=== PATIENT | female | born 1965 | race Caucasian/White ===

== ENCOUNTER 2016-12-28 01:17 | Emergency (ER) | payer OTHER ==
[~2016-12-28] VITALS: Ht 165.1 cm; Wt 90.9 kg
[~2016-12-28 01:17] MED LIST: NORCO 5/3251 TABLET PO
[2016-12-28 04:43] LABS: CHLORIDE 111 mEq/L (99-109); MCHC 34.2 G/DL (30.0-36.0); MCV 96.5 FL (83-99); NRBC (%) 1.1 /100 WBC (0-0); POTASSIUM 3.3 mEq/L (3.7-5.4); RBC DIS.WIDTH-CV 17.6 % (11.8-14.6); RBC DIS.WIDTH-SD 62.5 % (39-53); RED BLOOD COUNT 3.73 M/uL (3.80-5.20); SODIUM 141 mEq/L (136-147); WHITE BLOOD COUNT 2.7 K/uL (4.1-10.2)
[2016-12-28 04:45] LABS: GLUCOSE 94 mg/dL (70-99)
[2016-12-28 04:46] LABS: ANION GAP 7 MEQ/L (2-14)
[2016-12-28 04:47] LABS: TOTAL BILIRUBIN 4.4 mg/dL (0.0-1.0)
[2016-12-28 04:48] LABS: ALKALINE PHOSPHATASE 102 IU/L (3-129)
[2016-12-28 04:49] LABS: GFR ESTIMATE (CALCULATED) > 59 mL/min/
[2016-12-28 04:50] LABS: UREA NITROGEN (BUN) 4 mg/dL (9-23)
[2016-12-28 05:35] LABS: HEMATOLOGY COMMENT 1 SMEAR COMPATIBLE; MEAN PLAT.VOLUME 11.5 uM^3 (9.5-12.4); PLAT.SUFFICIENCY DECREASED; PLATELET COUNT 40 K/uL (156-360)
[2016-12-28] MEDS ORDERED: KEFLEX500 MG PO (06:11)
[2016-12-28] MEDS ORDERED: PERCOCET 5/31 TABLET PO (06:11)
[2016-12-28 06:30] VITALS: BP 117/62
[2016-12-28 07:02] LABS: C-REACTIVE PROTEIN 7.2 MG/L (0-10); SAMPLE HEMOLYSIS CHECK 1; SAMPLE ICTERIC CHECK 1; SAMPLE LIPEMIA CHECK 0
== END 2016-12-28 06:32 | disposition home or self-care (01) ==
LOC: EME 01:17
PROVIDERS: Physician Assistant
PROC: [UNRECOGNIZED PROCEDURE] (principal; 2016-12-28)
DX: M79.89 Other specified soft tissue disorders (principal); B19.20 Unspecified viral hepatitis C without hepatic coma; Z88.2 Allergy status to sulfonamides; F17.200 Nicotine dependence, unspecified, uncomplicated
CPT/HCPCS: 73590; 80053; 85027; 86140; 93970; 99281; 99285; J2270; J2405; J7030

== ENCOUNTER 2017-01-20 17:10 | Inpatient (IN) | payer OTHER ==
[~2017-01-20] VITALS: Ht 165.1 cm; Wt 94.0 kg
[~2017-01-20 17:10] MED LIST changes: +KEFLEX500 MG PO; +PERCOCET 5/31 TABLET PO
[2017-01-20] MEDS ORDERED: DAILY VITE WIT1 EACH PO (18:27)
[2017-01-20 18:30] LABS: MCH 33.2 PG (29.0-34.0); MCHC 33.8 G/DL (30.0-36.0); MCV 98.1 FL (83-99); NRBC (%) 0.6 /100 WBC (0-0); RBC DIS.WIDTH-CV 21.7 % (11.8-14.6); RBC DIS.WIDTH-SD 77.3 % (39-53); RED BLOOD COUNT 3.77 M/uL (3.80-5.20); WHITE BLOOD COUNT 3.1 K/uL (4.1-10.2)
[2017-01-20 18:34] LABS: EOSINOPHIL (%) 1.9 % (0-5); EOSINOPHIL COUNT 0.1 K/uL (0-0.3); IMMATURE GRANULOCYTE (%) 0.6 % (0.0-0.7); INSTRUMENT ABS NEUTROPHIL CT 2.2 K/uL; LYMPHOCYTE COUNT 0.5 K/uL (1.0-2.8); MONOCYTE (%) 10.5 % (3-12); MONOCYTE COUNT 0.3 K/uL (0-0.8); NEUTROPHIL (%) 69.5 % (45-76); NEUTROPHIL COUNT 2.2 K/uL (1.8-6.4)
[2017-01-20 18:41] LABS: CHLORIDE 108 mEq/L (99-109); SODIUM 140 mEq/L (136-147)
[2017-01-20 18:43] LABS: GLUCOSE 124 mg/dL (70-99)
[2017-01-20 18:44] LABS: ANION GAP 8 MEQ/L (2-14); D-DIMER ELISA 2.74 mg/L FEU (< 0.57)
[2017-01-20 18:45] LABS: TOTAL BILIRUBIN 8.4 mg/dL (0.0-1.0)
[2017-01-20 18:46] LABS: ALKALINE PHOSPHATASE 104 IU/L (3-129); SERUM ETHYL ALCOHOL < 10 mg/dL
[2017-01-20 18:47] LABS: GFR ESTIMATE (CALCULATED) > 59 mL/min/
[2017-01-20 18:48] LABS: UREA NITROGEN (BUN) 3 mg/dL (9-23)
[2017-01-20 18:50] LABS: LIPASE 24 U/L (1.0-51.0)
[2017-01-20 19:14] LABS: ADD MIUA? YES; BILIRUBIN MODERATE; BLOOD NEGATIVE; COLOR AMBER ((YELLOW)); GLUCOSE (STRIP) NEGATIVE; KETONES NEGATIVE; LEUKOCYTES NEGATIVE; NITRITE NEGATIVE; PROTEIN (STRIP) NEGATIVE
[2017-01-20 19:20] LABS: HEMATOLOGY COMMENT 1 SN; IMM.PLATELET FRACTION 3.2 (1-7); MEAN PLAT.VOLUME 9.8 uM^3 (9.5-12.4); PLAT.SUFFICIENCY DECREASED; PLATELET COUNT 33 K/uL (156-360)
[2017-01-20 19:27] LABS: ICTOTEST POSITIVE
[2017-01-20 19:59] LABS: AMORPHOUS PHOSPHATE CRYSTALS RARE; BACTERIA 1+ /HPF; CASTS NONE SEEN /LPF; CRYSTALS PRESENT; EPITHELIAL CELLS RARE /HPF; MUCUS RARE /LPF; RED BLOOD CELLS 0-5 /HPF (0-5); WHITE BLOOD CELLS 0-5 /HPF (0-5)
[2017-01-20 20:09] LABS: TROP-I INTERPRETATION NEGATIVE; TROPONIN-I 0.03 ng/mL (0.0-0.30)
[2017-01-20] MEDS ORDERED: KLOR-CON M2020 MEQ PO (22:28)
[2017-01-20] MEDS ORDERED: LO-DOSE ASPIRIN81 M2 PO (22:28)
[2017-01-20] MEDS ORDERED: ADVIL200 MG PO (22:31)
[2017-01-21 03:55] VITALS: BP 144/71
[2017-01-21 06:51] LABS: TROP-I INTERPRETATION NEGATIVE; TROPONIN-I 0.01 ng/mL (0.0-0.30)
[2017-01-21 08:13] VITALS: BP 122/67
[2017-01-21 19:29] VITALS: BP 126/71
[2017-01-21 23:34] VITALS: BP 120/85
[2017-01-22 03:36] VITALS: BP 123/74
[2017-01-22 06:18] LABS: EOSINOPHIL (%) 3.5 % (0-5); EOSINOPHIL COUNT 0.1 K/uL (0-0.3); HEMATOCRIT 33.2 % (36.0-46.0); IMMATURE GRANULOCYTE (%) 0.3 % (0.0-0.7); INSTRUMENT ABS NEUTROPHIL CT 1.7 K/uL; LYMPHOCYTE COUNT 0.7 K/uL (1.0-2.8); MCH 33.4 PG (29.0-34.0); MCHC 32.8 G/DL (30.0-36.0); MCV 101.8 FL (83-99); MONOCYTE (%) 11.2 % (3-12); MONOCYTE COUNT 0.3 K/uL (0-0.8); NEUTROPHIL (%) 60.9 % (45-76); NEUTROPHIL COUNT 1.7 K/uL (1.8-6.4); RBC DIS.WIDTH-SD 81.9 % (39-53); RED BLOOD COUNT 3.26 M/uL (3.80-5.20); WHITE BLOOD COUNT 2.9 K/uL (4.1-10.2)
[2017-01-22 06:30] LABS: INTER. NORMALIZED RATIO 1.8; PROTHROMBIN TIME 18.8 (9.2-11.2); PTT 36.2 (25-32)
[2017-01-22 06:41] LABS: ALKALINE PHOSPHATASE 86 IU/L (3-129); ANION GAP 6 MEQ/L (2-14); CHLORIDE 109 MEQ/L (99-109); GFR ESTIMATE (CALCULATED) > 59 mL/min/; POTASSIUM 3.2 MEQ/L (3.7-5.4); SAMPLE HEMOLYSIS CHECK 0; SAMPLE ICTERIC CHECK 2; SAMPLE LIPEMIA CHECK 0; SODIUM 139 MEQ/L (136-147); TOTAL BILIRUBIN 7.1 MG/DL (0.0-1.0); UREA NITROGEN (BUN) 6 mg/dL (9-23)
[2017-01-22 06:42] LABS: GLUCOSE 88 mg/dL (70-99)
[2017-01-22 07:38] LABS: IMM.PLATELET FRACTION 2.7 (1-7); MEAN PLAT.VOLUME 10.2 uM^3 (9.5-12.4); PLAT.SUFFICIENCY DECREASED; PLATELET COUNT 40 K/uL (156-360)
[2017-01-22 08:13] VITALS: BP 116/67
[2017-01-22 08:48] LABS: MAGNESIUM 1.8 mg/dl (1.3-2.7)
[2017-01-22 15:10] VITALS: BP 120/67
[2017-01-22 19:58] VITALS: BP 111/70
[2017-01-22 23:48] VITALS: BP 107/74
[2017-01-23 03:43] VITALS: BP 107/61
[2017-01-23 06:41] LABS: EOSINOPHIL (%) 2.2 % (0-5); EOSINOPHIL COUNT 0.1 K/uL (0-0.3); HEMATOCRIT 30.2 % (36.0-46.0); IMMATURE GRANULOCYTE (%) 0.4 % (0.0-0.7); INSTRUMENT ABS NEUTROPHIL CT 1.3 K/uL; LYMPHOCYTE COUNT 0.6 K/uL (1.0-2.8); MCH 35.3 PG (29.0-34.0); MCHC 34.4 G/DL (30.0-36.0); MCV 102.4 FL (83-99); MONOCYTE (%) 11.2 % (3-12); MONOCYTE COUNT 0.3 K/uL (0-0.8); NEUTROPHIL (%) 60.2 % (45-76); NEUTROPHIL COUNT 1.3 K/uL (1.8-6.4); RBC DIS.WIDTH-CV 22.2 % (11.8-14.6); RBC DIS.WIDTH-SD 81.9 % (39-53); RED BLOOD COUNT 2.95 M/uL (3.80-5.20); WHITE BLOOD COUNT 2.2 K/uL (4.1-10.2)
[2017-01-23 07:08] LABS: ALKALINE PHOSPHATASE 90 IU/L (3-129); ANION GAP 6 MEQ/L (2-14); CHLORIDE 110 MEQ/L (99-109); GFR ESTIMATE (CALCULATED) > 59 mL/min/; GLUCOSE 96 mg/dL (70-99); POTASSIUM 3.3 MEQ/L (3.7-5.4); SAMPLE HEMOLYSIS CHECK 0; SAMPLE ICTERIC CHECK 2; SAMPLE LIPEMIA CHECK 0; SODIUM 138 MEQ/L (136-147); TOTAL BILIRUBIN 6.4 MG/DL (0.0-1.0); UREA NITROGEN (BUN) 7 mg/dL (9-23)
[2017-01-23 07:31] LABS: IMM.PLATELET FRACTION 2.9 (1-7); MEAN PLAT.VOLUME 10.8 uM^3 (9.5-12.4); PLAT.SUFFICIENCY DECREASED; PLATELET COUNT 36 K/uL (156-360)
[2017-01-23 08:36] VITALS: BP 118/64
== END 2017-01-23 13:13 | disposition left against medical advice (07) | DRG 372 ==
LOC: EME 17:10 → 5SOUTH 01-21 01:44 → EDOF 01-21 01:44 → 5SOUTH 01-21 03:52
PROVIDERS: Physician Assistant; Specialist
PROC: HZ2ZZZZ Detoxification Services for Substance Abuse Treatment (ICD-10-PCS; principal; 2017-01-21)
DX: K65.2 Spontaneous bacterial peritonitis (principal); R07.89 Other chest pain; J44.1 Chronic obstructive pulmonary disease with (acute) exacerbation; E87.6 Hypokalemia; K70.10 Alcoholic hepatitis without ascites; K72.90 Hepatic failure, unspecified without coma; K70.30 Alcoholic cirrhosis of liver without ascites; I85.10 Secondary esophageal varices without bleeding; K76.6 Portal hypertension; F10.239 Alcohol dependence with withdrawal, unspecified; N39.0 Urinary tract infection, site not specified; D61.818 Other pancytopenia; D68.4 Acquired coagulation factor deficiency; F41.9 Anxiety disorder, unspecified; F17.210 Nicotine dependence, cigarettes, uncomplicated; Z86.19 Personal history of other infectious and parasitic diseases; Z88.2 Allergy status to sulfonamides
CPT/HCPCS: 71020; 71275; 74177; 80053; 81003; 82140; 83690; 83735; 83880; 84484; 85025; 85379; 85610; 85730; 87086; 93005; 94799; 99281; 99285; G0480; J0696; J1644; J1650; J2060; J2270; J2405; J3010; J3411; J3430; J3475; J3480; J7030; J7050

== ENCOUNTER 2017-02-10 20:24 | Inpatient (IN) | payer OTHER ==
[~2017-02-10] VITALS: Ht 162.6 cm; Wt 97.9 kg
[~2017-02-10 20:24] MED LIST changes: +ADVIL200 MG PO; +DAILY VITE WIT1 EACH PO; +KLOR-CON M2020 MEQ PO; +LO-DOSE ASPIRIN81 M2 PO
[2017-02-10 21:16] LABS: MCH 33.6 PG (29.0-34.0); MCHC 34.2 G/DL (30.0-36.0); MCV 98.4 FL (83-99); MEAN PLAT.VOLUME 10.8 uM^3 (9.5-12.4); PLATELET COUNT 72 K/uL (156-360); RBC DIS.WIDTH-CV 18.1 % (11.8-14.6); RBC DIS.WIDTH-SD 65.9 % (39-53); RED BLOOD COUNT 3.66 M/uL (3.80-5.20); WHITE BLOOD COUNT 6.7 K/uL (4.1-10.2)
[2017-02-10 21:19] LABS: CHLORIDE 104 mEq/L (99-109); POTASSIUM 3.8 mEq/L (3.7-5.4); SODIUM 136 mEq/L (136-147)
[2017-02-10 21:21] LABS: GLUCOSE 128 mg/dL (70-99)
[2017-02-10 21:22] LABS: ANION GAP 8 MEQ/L (2-14)
[2017-02-10 21:23] LABS: TOTAL BILIRUBIN 8.9 mg/dL (0.0-1.0)
[2017-02-10 21:24] LABS: ALKALINE PHOSPHATASE 130 IU/L (3-129)
[2017-02-10 21:25] LABS: GFR ESTIMATE (CALCULATED) > 59 mL/min/
[2017-02-10 21:26] LABS: UREA NITROGEN (BUN) 7 mg/dL (9-23)
[2017-02-10 21:28] LABS: LIPASE 32 U/L (1.0-51.0)
[2017-02-10 23:21] LABS: INTER. NORMALIZED RATIO 2.1; PROTHROMBIN TIME 24.3 SEC (10.2-12.9)
[2017-02-10 23:24] LABS: PTT 41.3 SEC (25-37)
[2017-02-11 00:55] LABS: ADD MIUA? YES; BILIRUBIN NEGATIVE; BLOOD LARGE; COLOR AMBER ((YELLOW)); GLUCOSE (STRIP) NEGATIVE; KETONES NEGATIVE; LEUKOCYTES LARGE; NITRITE NEGATIVE; PROTEIN (STRIP) NEGATIVE; SPECIFIC GRAVITY 1.023 (1.000-1.030)
[2017-02-11 01:10] LABS: BACTERIA RARE /HPF; EPITHELIAL CELLS RARE /HPF; MUCUS TRACE /LPF; UCUL ADDED? NO; WHITE BLOOD CELLS 0-5 /HPF (0-5)
[2017-02-11] MEDS ORDERED: POTASSIUM-9999 MG PO (01:14)
[2017-02-11] MEDS ORDERED: SPIRONOLACTONE50 MG PO (01:15)
[2017-02-11] MEDS ORDERED: PRILOSEC20 MG PO (01:15)
[2017-02-11] MEDS ORDERED: FUROSEMIDE40 MG PO (01:15)
[2017-02-11] MEDS ORDERED: BLOOD THINNER PO (01:16)
[2017-02-11 08:04] VITALS: BP 112/73
[2017-02-11 08:51] LABS: HEMATOCRIT 31.8 % (36.0-46.0); MCH 33.6 PG (29.0-34.0); MCHC 33.6 G/DL (30.0-36.0); MEAN PLAT.VOLUME 12.5 uM^3 (9.5-12.4); PLATELET COUNT 57 K/uL (156-360); RED BLOOD COUNT 3.18 M/uL (3.80-5.20); WHITE BLOOD COUNT 4.2 K/uL (4.1-10.2)
[2017-02-11 11:59] VITALS: BP 121/75
[2017-02-11 15:44] VITALS: BP 132/83
[2017-02-11 17:46] VITALS: BP 143/77
[2017-02-11 22:06] LABS: HEMATOCRIT 34.1 % (36.0-46.0); MCHC 34.9 G/DL (30.0-36.0); MCV 100.3 FL (83-99); MEAN PLAT.VOLUME 11.9 uM^3 (9.5-12.4); PLATELET COUNT 61 K/uL (156-360); RBC DIS.WIDTH-CV 17.8 % (11.8-14.6); RBC DIS.WIDTH-SD 65.3 % (39-53)
[2017-02-11 22:42] LABS: CANDIDA DNA PROBE NEGATIVE; GARDNERELLA DNA PROBE NEGATIVE; INTERNAL CONTROL VALID? YES
[2017-02-11 23:01] VITALS: BP 109/51
[2017-02-12 06:35] LABS: EOSINOPHIL (%) 4.3 % (0-5); EOSINOPHIL COUNT 0.2 K/uL (0-0.3); HEMATOCRIT 31.9 % (36.0-46.0); IMMATURE GRANULOCYTE (%) 0.3 % (0.0-0.7); INSTRUMENT ABS NEUTROPHIL CT 2.7 K/uL; LYMPHOCYTE COUNT 0.7 K/uL (1.0-2.8); MCH 32.8 PG (29.0-34.0); MCHC 33.2 G/DL (30.0-36.0); MCV 98.8 FL (83-99); MEAN PLAT.VOLUME 11.4 uM^3 (9.5-12.4); MONOCYTE (%) 10.6 % (3-12); MONOCYTE COUNT 0.4 K/uL (0-0.8); NEUTROPHIL (%) 67.7 % (45-76); NEUTROPHIL COUNT 2.7 K/uL (1.8-6.4); PLATELET COUNT 55 K/uL (156-360); RBC DIS.WIDTH-CV 17.4 % (11.8-14.6); RBC DIS.WIDTH-SD 63.7 % (39-53); RED BLOOD COUNT 3.23 M/uL (3.80-5.20)
[2017-02-12 06:57] LABS: ANION GAP 6 MEQ/L (2-14); CHLORIDE 105 MEQ/L (99-109); GFR ESTIMATE (CALCULATED) > 59 mL/min/; POTASSIUM 3.8 MEQ/L (3.7-5.4); SAMPLE HEMOLYSIS CHECK 0; SAMPLE ICTERIC CHECK 2; SAMPLE LIPEMIA CHECK 0; SODIUM 136 MEQ/L (136-147); UREA NITROGEN (BUN) 5 mg/dL (9-23)
[2017-02-12 07:05] LABS: GLUCOSE 88 mg/dL (70-99)
[2017-02-12 07:21] VITALS: BP 135/68
[2017-02-12 10:17] LABS: INTER. NORMALIZED RATIO 2.3; PROTHROMBIN TIME 26.7 SEC (10.2-12.9)
[2017-02-12 13:15] LABS: CHLAMYDIA TRACHOMATIS NEGATIVE; NEISSERIA GONORRHOEAE NEGATIVE
[2017-02-12 13:53] LABS: ALKALINE PHOSPHATASE 67 IU/L (3-129); TOTAL BILIRUBIN 9.4 MG/DL (0.0-1.0)
[2017-02-12 15:22] VITALS: BP 102/51
[2017-02-13] VITALS: BP 106/56
[2017-02-13 00:15] VITALS: BP 116/57
[2017-02-13 07:54] VITALS: BP 109/54
[2017-02-14 06:14] LABS: EOSINOPHIL (%) 2.2 % (0-5); EOSINOPHIL COUNT 0.1 K/uL (0-0.3); HEMATOCRIT 29.8 % (36.0-46.0); IMMATURE GRANULOCYTE (%) 1.1 % (0.0-0.7); IMMATURE GRANULOCYTE COUNT 0.1 K/uL; INSTRUMENT ABS NEUTROPHIL CT 3.4 K/uL; LYMPHOCYTE COUNT 0.5 K/uL (1.0-2.8); MCHC 35.6 G/DL (30.0-36.0); MCV 98.3 FL (83-99); MONOCYTE (%) 9.3 % (3-12); MONOCYTE COUNT 0.4 K/uL (0-0.8); NEUTROPHIL (%) 75.6 % (45-76); NEUTROPHIL COUNT 3.4 K/uL (1.8-6.4); NRBC (%) 0.4 /100 WBC (0-0); RBC DIS.WIDTH-CV 17.2 % (11.8-14.6); RED BLOOD COUNT 3.03 M/uL (3.80-5.20); WHITE BLOOD COUNT 4.5 K/uL (4.1-10.2)
[2017-02-14 06:39] LABS: ALKALINE PHOSPHATASE 71 IU/L (3-129); ANION GAP 5 MEQ/L (2-14); CHLORIDE 109 MEQ/L (99-109); GFR ESTIMATE (CALCULATED) > 59 mL/min/; GLUCOSE 91 mg/dL (70-99); MAGNESIUM 1.7 mg/dl (1.3-2.7); POTASSIUM 3.3 MEQ/L (3.7-5.4); SAMPLE HEMOLYSIS CHECK 0; SAMPLE ICTERIC CHECK 2; SAMPLE LIPEMIA CHECK 0; SODIUM 137 MEQ/L (136-147); TOTAL BILIRUBIN 7.6 MG/DL (0.0-1.0); UREA NITROGEN (BUN) 4 mg/dL (9-23)
[2017-02-14 06:47] LABS: IMM.PLATELET FRACTION 3.8 (1-7); MEAN PLAT.VOLUME 11.7 uM^3 (9.5-12.4); PLAT.SUFFICIENCY DECREASED; PLATELET COUNT 48 K/uL (156-360)
[2017-02-14 06:50] VITALS: BP 117/58
[2017-02-14 06:52] LABS: INTER. NORMALIZED RATIO 2.4; PROTHROMBIN TIME 27.2 SEC (10.2-12.9)
[2017-02-14 06:55] LABS: PTT 47.8 SEC (25-37)
[2017-02-14 15:00] VITALS: BP 121/63
[2017-02-15 00:23] VITALS: BP 117/68
[2017-02-15 06:39] LABS: EOSINOPHIL COUNT 0.2 K/uL (0-0.3); HEMATOCRIT 30.7 % (36.0-46.0); IMMATURE GRANULOCYTE (%) 0.7 % (0.0-0.7); INSTRUMENT ABS NEUTROPHIL CT 2.8 K/uL; LYMPHOCYTE COUNT 0.8 K/uL (1.0-2.8); MCH 33.5 PG (29.0-34.0); MCHC 33.9 G/DL (30.0-36.0); MEAN PLAT.VOLUME 11.6 uM^3 (9.5-12.4); MONOCYTE (%) 11.8 % (3-12); MONOCYTE COUNT 0.5 K/uL (0-0.8); NEUTROPHIL (%) 65.6 % (45-76); NEUTROPHIL COUNT 2.8 K/uL (1.8-6.4); PLATELET COUNT 51 K/uL (156-360); RBC DIS.WIDTH-CV 17.2 % (11.8-14.6); RBC DIS.WIDTH-SD 62.3 % (39-53); WHITE BLOOD COUNT 4.2 K/uL (4.1-10.2)
[2017-02-15 06:52] LABS: INTER. NORMALIZED RATIO 2.4; PROTHROMBIN TIME 27.8 SEC (10.2-12.9)
[2017-02-15 06:55] LABS: PTT 47.2 SEC (25-37)
[2017-02-15 07:34] LABS: ALKALINE PHOSPHATASE 70 IU/L (3-129); ANION GAP 9 MEQ/L (2-14); CHLORIDE 109 MEQ/L (99-109); GFR ESTIMATE (CALCULATED) > 59 mL/min/; GLUCOSE 86 mg/dL (70-99); POTASSIUM 3.3 MEQ/L (3.7-5.4); SAMPLE HEMOLYSIS CHECK 0; SAMPLE ICTERIC CHECK 2; SAMPLE LIPEMIA CHECK 0; SODIUM 138 MEQ/L (136-147); TOTAL BILIRUBIN 8.1 MG/DL (0.0-1.0); UREA NITROGEN (BUN) 4 mg/dL (9-23)
[2017-02-15 08:43] VITALS: BP 105/57
[2017-02-15 16:14] VITALS: BP 102/57
[2017-02-16 06:24] LABS: HEMATOCRIT 31.7 % (36.0-46.0); MCH 33.6 PG (29.0-34.0); MCHC 34.1 G/DL (30.0-36.0); MCV 98.8 FL (83-99); MEAN PLAT.VOLUME 12.3 uM^3 (9.5-12.4); NRBC (%) 0.4 /100 WBC (0-0); PLATELET COUNT 55 K/uL (156-360); RBC DIS.WIDTH-CV 17.4 % (11.8-14.6); RBC DIS.WIDTH-SD 62.7 % (39-53); RED BLOOD COUNT 3.21 M/uL (3.80-5.20); WHITE BLOOD COUNT 4.7 K/uL (4.1-10.2)
[2017-02-16 06:51] LABS: ALKALINE PHOSPHATASE 67 IU/L (3-129); ANION GAP 6 MEQ/L (2-14); CHLORIDE 108 MEQ/L (99-109); GFR ESTIMATE (CALCULATED) > 59 mL/min/; GLUCOSE 82 mg/dL (70-99); POTASSIUM 3.7 MEQ/L (3.7-5.4); SAMPLE HEMOLYSIS CHECK 0; SAMPLE ICTERIC CHECK 2; SAMPLE LIPEMIA CHECK 0; SODIUM 138 MEQ/L (136-147); TOTAL BILIRUBIN 8.1 MG/DL (0.0-1.0); UREA NITROGEN (BUN) 4 mg/dL (9-23)
[2017-02-16 07:11] LABS: INTER. NORMALIZED RATIO 2.5; PROTHROMBIN TIME 28.1 SEC (10.2-12.9)
[2017-02-16 07:12] LABS: PTT 47.5 SEC (25-37)
[2017-02-16 07:49] VITALS: BP 114/58
[2017-02-16] MEDS ORDERED: PENTOXIFYLLINE400 MG PO (10:32)
[2017-02-16] MEDS ORDERED: CLOTRIM ANTIFUN15 GM TP (10:33)
[2017-02-16] MEDS ORDERED: ZOFRAN ODT4 MG PO (10:34)
[2017-02-16] MEDS ORDERED: CONSTULOSE10 GM/15 M PO (10:35)
[2017-02-16] MEDS ORDERED: MEPHYTON5 MG PO (10:39)
== END 2017-02-16 11:55 | disposition home or self-care (01) | DRG 392 ==
LOC: EME 20:24 → 5EAST 02-11 02:44 → EDOF 02-11 02:44 → 5EAST 02-11 17:13
PROVIDERS: Emergency Medicine; Family Medicine; Hospitalist; Obstetrics & Gynecology; Specialist
DX: A09 Infectious gastroenteritis and colitis, unspecified (principal); N39.0 Urinary tract infection, site not specified; A59.01 Trichomonal vulvovaginitis; K70.11 Alcoholic hepatitis with ascites; K70.31 Alcoholic cirrhosis of liver with ascites; B18.2 Chronic viral hepatitis C; B37.2 Candidiasis of skin and nail; D69.6 Thrombocytopenia, unspecified; F10.10 Alcohol abuse, uncomplicated; L73.9 Follicular disorder, unspecified; J44.9 Chronic obstructive pulmonary disease, unspecified; R73.03 Prediabetes; E66.9 Obesity, unspecified; Z68.37 Body mass index [BMI] 37.0-37.9, adult; Z79.82 Long term (current) use of aspirin; Z86.14 Personal history of Methicillin resistant Staphylococcus aureus infection; Z87.891 Personal history of nicotine dependence; Z88.2 Allergy status to sulfonamides
CPT/HCPCS: 74177; 76705; 80048; 80053; 81003; 82140; 83605; 83690; 83735; 85014; 85018; 85025; 85027; 85610; 85730; 86900; 86901; 87040; 87480; 87491; 87493; 87510; 87591; 87660; 99281; 99285; C9113; J0744; J2270; J2405; J3411; J3430; J3475; J7030; J7040; S0028; S0030

== ENCOUNTER 2017-04-04 09:02 | Emergency (ER) | payer OTHER ==
[~2017-04-04] VITALS: Ht 162.6 cm; Wt 95.8 kg
[~2017-04-04 09:02] MED LIST changes: +BLOOD THINNER PO; +CLOTRIM ANTIFUN15 GM TP; +CONSTULOSE10 GM/15 M PO; +FUROSEMIDE40 MG PO; +MEPHYTON5 MG PO; +PENTOXIFYLLINE400 MG PO; +POTASSIUM-9999 MG PO; +PRILOSEC20 MG PO; +SPIRONOLACTONE50 MG PO; +ZOFRAN ODT4 MG PO
[2017-04-04 10:49] LABS: MCH 31.5 PG (29.0-34.0); MCHC 32.4 G/DL (30.0-36.0); MCV 97.4 FL (83-99); PLATELET COUNT 69 K/uL (156-360); RBC DIS.WIDTH-CV 19.8 % (11.8-14.6); RBC DIS.WIDTH-SD 69.4 % (39-53); RED BLOOD COUNT 3.49 M/uL (3.80-5.20); WHITE BLOOD COUNT 3.9 K/uL (4.1-10.2)
[2017-04-04 12:11] LABS: CHLORIDE 109 mEq/L (99-109); POTASSIUM 3.4 mEq/L (3.7-5.4); SODIUM 138 mEq/L (136-147)
[2017-04-04 12:13] LABS: GLUCOSE 107 mg/dL (70-99)
[2017-04-04 12:15] LABS: ANION GAP 7 MEQ/L (2-14); TOTAL BILIRUBIN 10.6 mg/dL (0.0-1.0)
[2017-04-04 12:17] LABS: ALKALINE PHOSPHATASE 138 IU/L (3-129); GFR ESTIMATE (CALCULATED) > 59 mL/min/
[2017-04-04 12:18] LABS: UREA NITROGEN (BUN) 5 mg/dL (9-23)
[2017-04-04 12:20] LABS: LIPASE 14 U/L (1.0-51.0)
[2017-04-04 12:26] LABS: QUANTITATIVE HCG < 4.0 MIU/ML
[2017-04-04 15:08] LABS: ADD MIUA? YES; BILIRUBIN MODERATE; BLOOD SMALL; COLOR AMBER ((YELLOW)); GLUCOSE (STRIP) NEGATIVE; KETONES NEGATIVE; LEUKOCYTES NEGATIVE; NITRITE NEGATIVE; PROTEIN (STRIP) 30; SPECIFIC GRAVITY 1.024 (1.000-1.030)
[2017-04-04 15:31] LABS: RED BLOOD CELLS RARE /HPF (0-5); WHITE BLOOD CELLS RARE /HPF (0-5)
[2017-04-04 15:32] LABS: AMORPHOUS URATES CRYSTALS 1+; BACTERIA RARE /HPF; CALCIUM OXALATE CRYSTALS 2+ /HPF; CASTS NONE SEEN /LPF; CRYSTALS PRESENT; EPITHELIAL CELLS 2+ /HPF; MUCUS 3+ /LPF; UCUL ADDED? NO
[2017-04-04 15:58] LABS: ICTOTEST POSITIVE
[2017-04-04 17:06] VITALS: BP 116/63
== END 2017-04-04 17:10 | disposition home or self-care (01) ==
LOC: EME 09:02
PROVIDERS: Emergency Medicine
DX: K74.60 Unspecified cirrhosis of liver (principal); K72.90 Hepatic failure, unspecified without coma; B18.2 Chronic viral hepatitis C; F17.200 Nicotine dependence, unspecified, uncomplicated; Z88.2 Allergy status to sulfonamides
CPT/HCPCS: 74177; 80053; 81003; 83690; 84702; 85027; 99281; 99283; J2270; J2405